=== PATIENT | male | born 1970 | race Two or more races ===

== ENCOUNTER 2023-01-30 01:51 | Emergency (ER) | payer SELFPAY ==
[~2023-01-30] VITALS: Ht 167.6 cm; Wt 88.8 kg
[2023-01-30] MEDS ORDERED: KETOROLAC 60MG/2ML VIAL IM ONE (02:45)
[2023-01-30] MEDS ORDERED: DIAZEPAM 5 MG TABLET PO ONE (02:45)
[2023-01-30] MEDS ORDERED: DIAZEPAM 5 MG TABLET PO NR (03:00)
[2023-01-30] MEDS ORDERED: IBUP-2029 MT (03:05)
[2023-01-30] MEDS ORDERED: METH-773 MT (03:05)
[2023-01-30 03:33] VITALS: BP 169/107
== END 2023-01-30 03:38 | disposition home or self-care (01) ==
LOC: ER 01:51
DX: M54.50 Low back pain, unspecified (principal); I10 Essential (primary) hypertension
CPT/HCPCS: 96372; 99283; J1885